=== PATIENT | female | born 1995 | race African-American/Black ===

== ENCOUNTER 2017-03-07 09:31 | Emergency (ER) | payer OTHER ==
[~2017-03-07] VITALS: Ht 160 cm; Wt 81.6 kg
[2017-03-07 09:50] VITALS: BP 157/100
[2017-03-07] MEDS ORDERED: cefTRIAXone SOD 1,000 MG VL IM ONE (10:15)
== END 2017-03-07 10:27 | disposition home or self-care (01) ==
LOC: ER 09:31
DX: L03.211 Cellulitis of face (principal); K02.9 Dental caries, unspecified
CPT/HCPCS: 96372; 99283; J0696